=== PATIENT | female | born 1960 | race Caucasian/White ===

== ENCOUNTER 2019-02-03 03:25 | Emergency (ER) | payer OTHER ==
--- NOTE | 2019-02-03 07:57 | RAD ---
RIGHT FOOT 3 VIEWS: Date: 02/03/19 HISTORY: Right foot injury. FINDINGS: Lisfranc joint alignment is anatomic. Plantar arch is maintained. Mild to moderate osteophytosis thro ughout the foot. Small plantar and Achilles enthesophytes at the posterior aspect of the calcaneus. N o acute fracture or dislocation. IMPRESSION: Mild degenerative changes. No acute osseous abnormalities are demonstrated. POS: [facility]
== END 2019-02-03 04:09 | disposition home or self-care (01) ==
LOC: MADERS 03:25
DX: S90.31XA Contusion of right foot, initial encounter (principal); F32.9 Major depressive disorder, single episode, unspecified; W20.8XXA Other cause of strike by thrown, projected or falling object, initial encounter
CPT/HCPCS: 99281